=== PATIENT | male | born 1935 | race Caucasian/White ===

== ENCOUNTER 2018-02-12 10:12 | Inpatient (IN) | payer OTHER ==
[~2018-02-12] VITALS: Ht 182.9 cm; Wt 69.4 kg
[~2018-02-12 10:12] MED LIST: ABAT250V; AMIO200 PO; AMLO10 PO; ASPI81EC PO; CARV25 PO; CARV3.125 PO; CEPH500 PO; CLOP75 PO; FURO20 PO; FURO40 PO; LEVFLO500 PO; LISI20 PO; POTCHL10ER PO; PRED20 PO; Zestril30 MG PO
[2018-02-12] MEDS ORDERED: [UNRECOGNIZED DRUG - REMARK] (10:31)
[2018-02-12] MEDS ORDERED: METO2.5 PO (10:32)
[2018-02-12 10:50] LABS: BASOPHILS ABSOLUTE AUTO 0.03 K/mm3 (0.00-0.23); BASOPHILS PERCENT AUTO 0 % (0-2); EOSINOPHILS ABSOLUTE AUTO 0.01 K/mm3 (0.00-0.68); EOSINOPHILS PERCENT AUTO 0 % (0-6); Hemoglobin 10.3 g/dL (13.5-17.5); IMMATURE GRAN ABSOLUTE AUTO 0.06 K/mm3 (0.00-0.10); IMMATURE GRAN PERCENT AUTO 1 % (0-1); LYMPHOCYTES ABSOLUTE AUTO 0.62 K/mm3 (0.84-5.20); LYMPHOCYTES PERCENT AUTO 6 % (21-46); MONOCYTES ABSOLUTE AUTO 1.01 K/mm3 (0.16-1.47); MONOCYTES PERCENT AUTO 10 % (4-13); Mean Corpuscular HGB 32.7 pg (26.0-34.0); Mean Corpuscular HGB Conc 30.3 g/dL (31.5-36.5); Mean Corpuscular Volume 108 fL (80-100); Mean Platelet Volume 11.5 fL (9.1-12.4); NEUTROPHILS ABSOLUTE AUTO 8.31 K/mm3 (1.96-9.15); NEUTROPHILS PERCENT AUTO 83 % (41-73); Platelet Count 137 K/mm3 (150-400); RDW Coefficient Variation 18.3 % (11.7-14.2); RDW Standard Deviation 71.8 fL (35.1-46.3); Red Blood Cell Count 3.15 M/mm3 (4.30-5.90); White Blood Cell Count 10.04 K/mm3 (4.00-11.30)
[2018-02-12 11:07] LABS: Troponin I 0.019 ng/mL (0.000-0.040)
[2018-02-12 11:11] LABS: Albumin/Globulin Ratio 0.4 (0.8-1.8); Bilirubin, Total 2.4 mg/dL (0.1-1.0); Bun/Creatinine Ratio 36.6 (12.0-20.0); Calcium, Blood 8.1 mg/dL (8.5-10.1); Creatinine, Blood 1.91 mg/dL (0.60-1.20); Globulin, Blood 5.3 g/dL (2.2-4.0); Potassium, Blood 4.3 mmol/L (3.5-5.5); Total Protein, Blood 7.3 g/dL (6.4-8.2)
[2018-02-12 17:01] LABS: Creatine Kinase MB 0.6 ng/mL (0.0-3.6); Troponin I 0.017 ng/mL (0.000-0.040)
[2018-02-12 17:05] LABS: Thyroid Stimulating Hormone 3.68 uIU/mL (0.360-4.800)
[2018-02-13 02:37] LABS: Hematocrit 35.1 % (37.0-53.0); Hemoglobin 10.5 g/dL (13.5-17.5); Mean Corpuscular HGB 32.7 pg (26.0-34.0); Mean Corpuscular HGB Conc 29.9 g/dL (31.5-36.5); Mean Corpuscular Volume 109 fL (80-100); Mean Platelet Volume 11.1 fL (9.1-12.4); Platelet Count 116 K/mm3 (150-400); RDW Coefficient Variation 18.1 % (11.7-14.2); RDW Standard Deviation 72.3 fL (35.1-46.3); Red Blood Cell Count 3.21 M/mm3 (4.30-5.90); White Blood Cell Count 8.31 K/mm3 (4.00-11.30)
[2018-02-13 02:55] LABS: Creatine Kinase MB 1.3 ng/mL (0.0-3.6); Creatine Kinase MB Index 9.3 (0.0-4.0); Troponin I 0.017 ng/mL (0.000-0.040)
[2018-02-13 03:05] LABS: Albumin, Blood 1.8 g/dL (3.4-5.0); Albumin/Globulin Ratio 0.4 (0.8-1.8); Bun/Creatinine Ratio 37.5 (12.0-20.0); Calcium, Blood 7.9 mg/dL (8.5-10.1); Creatinine, Blood 1.84 mg/dL (0.60-1.20); Potassium, Blood 3.9 mmol/L (3.5-5.5); Total Protein, Blood 6.8 g/dL (6.4-8.2)
[2018-02-14 04:06] LABS: Hematocrit 34.7 % (37.0-53.0); Hemoglobin 10.2 g/dL (13.5-17.5); Mean Corpuscular HGB 32.6 pg (26.0-34.0); Mean Corpuscular HGB Conc 29.4 g/dL (31.5-36.5); Mean Corpuscular Volume 111 fL (80-100); Mean Platelet Volume 11.8 fL (9.1-12.4); Platelet Count 103 K/mm3 (150-400); RDW Coefficient Variation 17.7 % (11.7-14.2); RDW Standard Deviation 71.7 fL (35.1-46.3); Red Blood Cell Count 3.13 M/mm3 (4.30-5.90); White Blood Cell Count 8.95 K/mm3 (4.00-11.30)
[2018-02-14 04:24] LABS: Magnesium, Blood 2.2 mg/dL (1.6-2.4)
[2018-02-14 04:25] LABS: Albumin, Blood 1.7 g/dL (3.4-5.0); Anion Gap 7 mmol/L (6-16); Blood Urea Nitrogen 71 mg/dL (8-24); Bun/Creatinine Ratio 39.9 (12.0-20.0); CO2, Blood 37 mmol/L (21-32); Calcium, Blood 7.8 mg/dL (8.5-10.1); Chloride, Blood 100 mmol/L (98-108); Creatinine, Blood 1.78 mg/dL (0.60-1.20); Glomerular Filtration Rate 39 (60-); Glucose, Blood 106 mg/dL (70-99); Phosphorus, Blood 4.3 mg/dL (2.5-4.9); Potassium, Blood 3.4 mmol/L (3.5-5.5); Sodium, Blood 144 mmol/L (136-145)
[2018-02-14 08:32] LABS: International Normalized Ratio 1.35; Prothrombin Time Results 13.7 Sec (9.7-11.5)
[2018-02-15 04:14] LABS: Hematocrit 34.8 % (37.0-53.0); Hemoglobin 10.2 g/dL (13.5-17.5); Mean Corpuscular HGB 32.9 pg (26.0-34.0); Mean Corpuscular HGB Conc 29.3 g/dL (31.5-36.5); Mean Corpuscular Volume 112 fL (80-100); Platelet Count 82 K/mm3 (150-400); RDW Coefficient Variation 17.7 % (11.7-14.2); White Blood Cell Count 8.13 K/mm3 (4.00-11.30)
[2018-02-15 04:21] LABS: International Normalized Ratio 1.39; Prothrombin Time Results 14.1 Sec (9.7-11.5)
[2018-02-15 04:31] LABS: Albumin, Blood 2.3 g/dL (3.4-5.0); Anion Gap 7 mmol/L (6-16); Blood Urea Nitrogen 68 mg/dL (8-24); CO2, Blood 39 mmol/L (21-32); Calcium, Blood 8.1 mg/dL (8.5-10.1); Chloride, Blood 100 mmol/L (98-108); Creatinine, Blood 1.66 mg/dL (0.60-1.20); Glomerular Filtration Rate 42 (60-); Glucose, Blood 97 mg/dL (70-99); Phosphorus, Blood 3.3 mg/dL (2.5-4.9); Potassium, Blood 3.4 mmol/L (3.5-5.5); Sodium, Blood 146 mmol/L (136-145)
[2018-02-16 03:40] LABS: BASOPHILS ABSOLUTE AUTO 0.03 K/mm3 (0.00-0.23); BASOPHILS PERCENT AUTO 0 % (0-2); EOSINOPHILS ABSOLUTE AUTO 0.05 K/mm3 (0.00-0.68); EOSINOPHILS PERCENT AUTO 1 % (0-6); Hematocrit 34.2 % (37.0-53.0); IMMATURE GRAN ABSOLUTE AUTO 0.06 K/mm3 (0.00-0.10); IMMATURE GRAN PERCENT AUTO 1 % (0-1); LYMPHOCYTES ABSOLUTE AUTO 0.39 K/mm3 (0.84-5.20); LYMPHOCYTES PERCENT AUTO 5 % (21-46); MONOCYTES ABSOLUTE AUTO 0.82 K/mm3 (0.16-1.47); MONOCYTES PERCENT AUTO 11 % (4-13); Mean Corpuscular HGB 33.1 pg (26.0-34.0); Mean Corpuscular HGB Conc 29.2 g/dL (31.5-36.5); Mean Corpuscular Volume 113 fL (80-100); NEUTROPHILS ABSOLUTE AUTO 6.32 K/mm3 (1.96-9.15); NEUTROPHILS PERCENT AUTO 82 % (41-73); NRBC ABSOLUTE 0.02 K/mm3 (0.00-0.02); NRBC Auto 0.3 /100 WBC (0.0-0.2); Platelet Count 67 K/mm3 (150-400); RDW Coefficient Variation 18.2 % (11.7-14.2); RDW Standard Deviation 76.4 fL (35.1-46.3); Red Blood Cell Count 3.02 M/mm3 (4.30-5.90); White Blood Cell Count 7.67 K/mm3 (4.00-11.30)
[2018-02-16 03:51] LABS: International Normalized Ratio 1.55; Prothrombin Time Results 15.6 Sec (9.7-11.5)
[2018-02-16 04:00] LABS: Albumin, Blood 2.5 g/dL (3.4-5.0); Anion Gap 6 mmol/L (6-16); Blood Urea Nitrogen 71 mg/dL (8-24); Bun/Creatinine Ratio 43.6 (12.0-20.0); CO2, Blood 41 mmol/L (21-32); Calcium, Blood 8.2 mg/dL (8.5-10.1); Chloride, Blood 101 mmol/L (98-108); Creatinine, Blood 1.63 mg/dL (0.60-1.20); Glomerular Filtration Rate 43 (60-); Glucose, Blood 96 mg/dL (70-99); Potassium, Blood 3.2 mmol/L (3.5-5.5); Sodium, Blood 148 mmol/L (136-145)
== END 2018-02-17 07:35 | DRG 308 ==
LOC: ER 10:12 → PCU 13:30
PROVIDERS: Emergency Medicine; Internal Medicine; Internal Medicine Cardiovascular Disease
DX: I48.0 Paroxysmal atrial fibrillation (principal); E43 Unspecified severe protein-calorie malnutrition; I50.43 Acute on chronic combined systolic (congestive) and diastolic (congestive) heart failure; N17.9 Acute kidney failure, unspecified; D69.3 Immune thrombocytopenic purpura; I31.3 Pericardial effusion (noninflammatory); C85.90 Non-Hodgkin lymphoma, unspecified, unspecified site; Z51.5 Encounter for palliative care; I50.814 Right heart failure due to left heart failure; R57.0 Cardiogenic shock; I11.0 Hypertensive heart disease with heart failure; E86.0 Dehydration; E86.1 Hypovolemia; I42.9 Cardiomyopathy, unspecified; R16.1 Splenomegaly, not elsewhere classified; D64.9 Anemia, unspecified; I44.7 Left bundle-branch block, unspecified; I25.2 Old myocardial infarction; R53.81 Other malaise; Z66 Do not resuscitate; Z79.899 Other long term (current) drug therapy; R09.02 Hypoxemia; Z79.02 Long term (current) use of antithrombotics/antiplatelets; Z79.82 Long term (current) use of aspirin; Z92.21 Personal history of antineoplastic chemotherapy
CPT/HCPCS: 36415; 71046; 80053; 80069; 82550; 82553; 83735; 83880; 84443; 84484; 85025; 85027; 85610; 93005; 93010; 93306; 94640; 94760; 96361; 96374; 97110; 97162; 97166; 97530; 99285; G8978; G8979; G8987; G8988; J0282; J1160; J7030; J7070; P9041